=== PATIENT | male | born 1965 | race Caucasian/White ===

== ENCOUNTER 2022-10-13 09:52 | Outpatient (CLI) | payer OTHER, SELFPAY ==
[2022-10-13 10:13] LABS: Hematocrit 39.5 % (42.0-52.0); Hemoglobin 12.5 g/dL (14.0-18.0); Mean Corpuscular HGB Conc 31.6 g/dl (32-36); Mean Corpuscular Hemoglobin 27.5 pg (26-34); Mean Platelet Volume 9.2 fl (7.4-10.4); Platelet Count Result 308 k/mm3 (150-375); Red Blood Count 4.54 M/mm3 (4.6-6.20); Red Cell Distribution Width 15.8 % (11.5-14.5); White Blood Count 9.1 K/mm3 (4.5-10.0)
[2022-10-13 10:23] LABS: Appearance Urine Clear (Clear); Bacteria Urine None Seen /hpf; Bilirubin Urine Negative (Negative); Blood Urine 1+ (Negative); Color Urine Dark Yellow (Yellow); Glucose Urine UA Negative (Negative); Ketones Urine Trace mg/dL (Negative); Leukocyte Esterase Ur Trace LEU/UL (Negative); Nitrate Urine Negative (Negative); Non Pathogenic Casts 0-2; Protein Urine 1+ mg/dL (Negative); Specific Grav Ur 1.021 (1.001-1.035); Squamous Epithelial Cell Urine None seen /hpf (Few); WBC Urine 0-5 /hpf; pH Urine 7.5 (5.0-9.0)
[2022-10-13 10:27] LABS: Add Urine Microscopic? YES
[2022-10-13 10:28] LABS: INR 0.9; Prothrombin Time 12.8 Seconds (11.1-14.7)
[2022-10-13 10:29] LABS: Partial Thromboplastin Time 30.9 SECONDS (22.3-36.8)
[2022-10-13 10:40] LABS: Anion Gap 5 mmol/L (8-16); Blood Urea Nitrogen 14 mg/dL (9-20); Calcium 9.3 mg/dL (8.4-10.2); Carbon Dioxide 28 mmol/L (22-30); Chloride 102 mmol/L (98-107); Estimated Glomerular Filt Rate > 60; Glucose 92 mg/dL (65-110); Potassium 4.3 mmol/L (3.4-5.0); Sodium 135 mmol/L (137-145)
== END 2022-10-13 09:53 | disposition home or self-care (01) ==
LOC: ANHLAB 09:54
PROVIDERS: Visit Provider Neurological Surgery
DX: Z01.818 Encounter for other preprocedural examination (principal); M48.02 Spinal stenosis, cervical region
CPT/HCPCS: 36415; 80048; 81001; 85027; 85610; 85730; 86850; 86900; 86901

== ENCOUNTER 2022-10-16 00:46 | Day surgery (SDC) | payer OTHER, SELFPAY ==
--- NOTE | 2022-10-10 13:45 | PC.NURSE ---
Report to the Outpatient Waiting Room, entrance under the green pavilion located off [facility], at time 6:00 on date 10/16/22. Planned Procedure Time: 8:00. Time changes happen often and if your time is changed the preop area will call you the afternoon before. - You and your visitor will be asked to self-screen and do not enter if you have any COVID symptoms. - A mask is optional within the hospital at this time. Patients may have clear liquids (water, carbonated beverages, clear teas, apple juice) until 3 hours prior to surgery (5:00) with a maximum of 20 ounces. - No food from midnight until time of surgery Take the following medications with a SIP of water the morning of surgery: AMLODIPINE DO NOT STOP ANY OF YOUR OTHER PRESCRIPTION MEDICATIONS PRIOR TO SURGERY ?EXCEPT THE FOLLOWING Medications to discontinue per physician: DICLOFENAC Date to take last dose: CHECK WITH DR. BONNER PER SUPERVISOR MOLD YARD, LAST DOSE OF BRILINTA 10/10/22. PER SUPERVISOR MOLD YARD, CONTINUE ASPIRIN (JUST SKIP DOSE Saturday) Please no make-up, nail samoan, hairspray, perfume, deodorant, or body powder the day of surgery. No jewelry (including any body piercings) or valuables the day of surgery, leave them at home. Please take a shower or bath the night before, or the morning of, surgery with an antibacterial soap. Wear comfortable, loose fitting clothing. - Jewelry must be removed prior to entering the operating room. Rings and piercings that are not removed may be cut off. - The hospital will not accept responsibility for valuables. - Please leave all valuables, including medications, at home the day of surgery. If you are going home after surgery, a licensed truck driver instructor must drive you home. - NO public transportation without another adult if you receive anesthesia. - We recommend that an adult stay with you for 24 hours following discharge. - We also recommend that you do not drive, make important decision, drink alcoholic beverages, or take any drugs that were not prescribed by your health care provider for at least 24 hours after your discharge time. Follow any additional instructions given to you from your surgeon. If you or anyone in your household have experienced Covid symptoms in the past week, please notify your surgeon or the nurse liaison at the phone number below for possible testing. Telephone instructions given to PT - JOSH BLACKWELL and asked if any additional questions and then verbalized understanding. Patient advised to call surgeon office or pre surgery nurse liaison [phone] if any additional questions.
[2022-10-10 13:55] VITALS: BMI 22.9
--- NOTE | 2022-10-15 14:45 | WPDANESEPPF ---
Anes - Initial Pre Proc Eval Procedure: Operation Date: 10/16/22 10:00 Proposed Procedures p C4-5, C6-C7 Anterior Cervical Discectomy and Fusion - Diaz Adrian MD Date/Time: 10/15/22 14:45 Surgeon: Diaz Adrian MD Pre Op Diagnosis: cervical stenosis, spondylosis,myelopathy Patient Data Age: 57 Gender: M Height: 1.78 m Weight: 72.6 kg Allergies Allergy/AdvReac Type Severity Reaction Status Date / Time No Known Allergies Allergy Unknown Verified 10/16/22 09:23 Home Medications Medication Instructions Recorded Confirmed Type allopurinol 100 mg tablet 100 mg PO DAILY 04/20/22 10/10/22 History cyclobenzaprine 5 mg tablet 5 mg PO TID PRN Muscle Spasm 04/20/22 10/10/22 History diclofenac sodium 75 mg 75 mg PO BID 04/20/22 10/16/22 History tablet,delayed release aspirin 81 mg tablet,delayed 81 mg PO DAILY 06/18/22 10/10/22 History release atorvastatin 40 mg tablet 40 mg PO DAILY 06/18/22 10/10/22 History ticagrelor 90 mg tablet (Brilinta) 90 mg PO BID 06/18/22 10/16/22 History amlodipine 10 mg tablet 10 mg PO DAILY 10/10/22 10/16/22 History hydrocodone 5 mg-acetaminophen 325 1 - 2 tablet PO Q4H PRN pain #30 10/16/22 Rx mg tablet tabs Patient hx anesthesia problems: none Family hx anesthesia problems: none Results Review: All pre-operative results and documents have been reviewed as part of the pre-operative evaluation. [facility] Past Medical History Medical History (Updated 10/15/22 @ 14:46 by Philip Caputo DO) Anxiety Bilateral inguinal hernia, without obstruction or gangrene, not specified as recurrent Gout, unspecified Heart attack 12/2021 Hepatitis C Hypertension Low back pain, unspecified Myalgia, other site Radiculopathy, cervical region Radiculopathy, lumbar region Spinal stenosis, cervical region Spinal stenosis, lumbar region without neurogenic claudication Umbilical hernia without obstruction or gangrene Surgical History Surgical History (Updated 10/15/22 @ 14:46 by Philip Caputo DO) History of coronary artery stent placement Family History Family History (Updated 04/20/22 @ 08:23 by Luisana Fry MA) Father Family history of chronic obstructive pulmonary disease Other Heart disease Social History Social History (Updated 04/20/22 @ 08:23 by Luisana Fry MA) Smoking status: Never smoker Second hand tobacco smoke exposure: No Alcohol intake: current Substance use: never Substance use type: does not use Lack of Transportation: No Lack of Food: Never True Current Housing: I Have Housing Concerned About Future Housing: No Difficulty Paying Gas/Electric Bills: No Difficulty Paying for Meds: No Currently Unemployed: No Education: Decline to Answer Difficulty w/ Childcare or Family Care: No Living arrangements: alone Occupation/Education: occupation Spiritual care concerns: No Anes - Eval Final PreProcedure Day of Procedure 10/15/22 14:45 Patient weight: normal Heart: regular rate and rhythm Lungs: clear to auscultation Airway: Mallampati scale class II Neurological: alert and oriented Last oral intake: >/= 8 hours ASA classification: III Emergent: no Anesthetic plan: proceed Anesthesia type and monitoring: general ETT and standard monitoring Results Review: All pre-operative results and documents have been reviewed as part of the pre-operative evaluation. Informed Consent: The patient's anesthetic plan and its attendant risks and benefits were discussed with the patient/family/POA. Questions were solicited and answers provided to the satisfaction of the patient/family/POA.
[2022-10-16] VITALS (12 sets, daily range): BP systolic 120–148; BP diastolic 72–89; PULSE 52–62; RESP 11–16; TEMP 36.4–36.7; O2SAT 92–100
--- NOTE | ~2022-10-16 | XR_ITS ---
EXAMINATION: XR fluoroscopy no charge DATE: 10/16/2022 10:00 CDT INDICATION: CERVICAL DISCECTOMY . TECHNIQUE: 2 fluoroscopic images of the cervical spine were obtained during cervical discectomy perfo rmed by the surgeon. I was not present in the operating room. Fluoroscopy exposure time was 3.8 secon ds. Air Kerma 0.2112 mGy. DAP 0.0042 mGym2. COMPARISON: None FINDINGS: Partially visualized endotracheal tube. A probe identifies the C4-5 disc space. ACDF hardware placed spanning C4-C6. Interbody devices in good position. IMPRESSION: Fluoroscopic documentation of cervical discectomy. Please refer to the operative note for complete pr ocedural details . Reviewed, dictated and finalized at location K. IMPRESSION: Fluoroscopic documentation of cervical discectomy. Please refer to the operativ e note for complete procedural details .
[2022-10-16] MEDS: LACTATED RINGERS 1,000 ML 30 ML IV CONT ×2 (09:00→12:15)
--- NOTE | 2022-10-16 09:59 | PM.IMHP ---
H&P: HPI History of Present Illness Date/Time: 10/16/22 09:59 Chief Complaint: Neck and arm pain, myelopathy, dysfunction in his hands Narrative: Angelito is a 57-year-old gentleman with a cervical spondylotic myelopathy who presents for decompression and fusion from an anterior approach at C4-5 and C5-6. He has not changed appreciably since we last saw him. He has weakness and loss of dexterity in his hands right greater than left. He has loss of sensation to some degree in his hands. He does has mild gait disturbance and is not having any bowel or bladder difficulty. Review of Systems Review of Systems: Patient denies shortness of breath, cough, fever, chills, nausea, vomiting, weight loss, weight gain, chest pain, dysuria. He has imbalance and difficulty using his hands as above as well as neck pain. His review of systems otherwise negative on 12 systems except as noted elsewhere. [facility] Past Medical History Medical History (Updated 10/15/22 @ 14:46 by Philip Caputo DO) Anxiety Bilateral inguinal hernia, without obstruction or gangrene, not specified as recurrent Gout, unspecified Heart attack 12/2021 Hepatitis C Hypertension Low back pain, unspecified Myalgia, other site Radiculopathy, cervical region Radiculopathy, lumbar region Spinal stenosis, cervical region Spinal stenosis, lumbar region without neurogenic claudication Umbilical hernia without obstruction or gangrene Surgical History Surgical History (Updated 10/15/22 @ 14:46 by Philip Caputo DO) History of coronary artery stent placement Family History Family History (Updated 04/20/22 @ 08:23 by Luisana Fry MA) Father Family history of chronic obstructive pulmonary disease Other Heart disease Social History Social History (Updated 04/20/22 @ 08:23 by Luisana Fry MA) Smoking status: Never smoker Second hand tobacco smoke exposure: No Alcohol intake: current Substance use: never Substance use type: does not use Lack of Transportation: No Lack of Food: Never True Current Housing: I Have Housing Concerned About Future Housing: No Difficulty Paying Gas/Electric Bills: No Difficulty Paying for Meds: No Currently Unemployed: No Education: Decline to Answer Difficulty w/ Childcare or Family Care: No Living arrangements: alone Occupation/Education: occupation Spiritual care concerns: No Meds Home Medications and Allergies Home Medications Medication Instructions Recorded Confirmed Type allopurinol 100 mg tablet 100 mg PO DAILY 04/20/22 10/10/22 History cyclobenzaprine 5 mg tablet 5 mg PO TID PRN Muscle Spasm 04/20/22 10/10/22 History diclofenac sodium 75 mg 75 mg PO BID 04/20/22 10/16/22 History tablet,delayed release aspirin 81 mg tablet,delayed 81 mg PO DAILY 06/18/22 10/10/22 History release atorvastatin 40 mg tablet 40 mg PO DAILY 06/18/22 10/10/22 History ticagrelor 90 mg tablet (Brilinta) 90 mg PO BID 06/18/22 10/16/22 History amlodipine 10 mg tablet 10 mg PO DAILY 10/10/22 10/16/22 History Allergies Allergy/AdvReac Type Severity Reaction Status Date / Time No Known Allergies Allergy Unknown Verified 10/16/22 09:23 Vital Signs Vital Signs - 24 hr 10/16/22 09:15 Temperature 97.5 F L Pulse Rate 62 Respiratory Rate 14 Blood Pressure 134/77 Pulse Oximetry 100 Oxygen Delivery Room Air Exam Narrative: 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 It is otherwise normal and symmetric in the bilateral upper extremities. Sensation is slightly decreased distally in the upper extremities. Regular rate and rhythm Breathing is nonlabored Assessment and Plan Assessment and plan (1) Myelopathy: Code(s): G95.9 - Disease of spinal cord, unspecified Status: Acute (2) Cervical stenosis of spine: Code(s): M48.02 - Spinal stenosis, cervical region Status: Ac
--- NOTE | 2022-10-16 10:02 | WPDHPUPDATE1 ---
History and Physical Update Update Date/Time: 10/16/22 10:02 History and Physical has been reviewed, including an updated exam of the patient. There are NO changes in the patient's condition. Risks, benefits, and alternatives have been discussed and questions answered. Patient agrees to proceed with procedure.
--- NOTE | 2022-10-16 10:08 | WPDANESEPPF ---
Anes - Initial Pre Proc Eval Procedure: Operation Date: 10/16/22 10:00 Proposed Procedures p C4-5, C6-C7 Anterior Cervical Discectomy and Fusion - Diaz Adrian MD Date/Time: 10/16/22 10:08 Surgeon: Diaz Adrian MD Pre Op Diagnosis: cervical stenosis, spondylosis,myelopathy Patient Data Age: 57 Gender: M Height: 1.78 m Weight: 71.2 kg Last Vital Signs Temp 97.5 F L 10/16/22 09:15 Pulse 62 10/16/22 09:15 Resp 14 10/16/22 09:15 BP 134/77 10/16/22 09:15 Pulse Ox 100 10/16/22 09:15 O2 Del Method Room Air 10/16/22 09:15 Allergies Allergy/AdvReac Type Severity Reaction Status Date / Time No Known Allergies Allergy Unknown Verified 10/16/22 09:23 Home Medications Medication Instructions Recorded Confirmed Type allopurinol 100 mg tablet 100 mg PO DAILY 04/20/22 10/10/22 History cyclobenzaprine 5 mg tablet 5 mg PO TID PRN Muscle Spasm 04/20/22 10/10/22 History diclofenac sodium 75 mg 75 mg PO BID 04/20/22 10/16/22 History tablet,delayed release aspirin 81 mg tablet,delayed 81 mg PO DAILY 06/18/22 10/10/22 History release atorvastatin 40 mg tablet 40 mg PO DAILY 06/18/22 10/10/22 History ticagrelor 90 mg tablet (Brilinta) 90 mg PO BID 06/18/22 10/16/22 History amlodipine 10 mg tablet 10 mg PO DAILY 10/10/22 10/16/22 History Patient hx anesthesia problems: none Family hx anesthesia problems: none Results Review: All pre-operative results and documents have been reviewed as part of the pre-operative evaluation. [facility] Past Medical History Medical History (Updated 10/15/22 @ 14:46 by Philip Caputo DO) Anxiety Bilateral inguinal hernia, without obstruction or gangrene, not specified as recurrent Gout, unspecified Heart attack 12/2021 Hepatitis C Hypertension Low back pain, unspecified Myalgia, other site Radiculopathy, cervical region Radiculopathy, lumbar region Spinal stenosis, cervical region Spinal stenosis, lumbar region without neurogenic claudication Umbilical hernia without obstruction or gangrene Surgical History Surgical History (Updated 10/15/22 @ 14:46 by Philip Caputo DO) History of coronary artery stent placement Family History Family History (Updated 04/20/22 @ 08:23 by Luisana Fry MA) Father Family history of chronic obstructive pulmonary disease Other Heart disease Social History Social History (Updated 04/20/22 @ 08:23 by Luisana Fry MA) Smoking status: Never smoker Second hand tobacco smoke exposure: No Alcohol intake: current Substance use: never Substance use type: does not use Lack of Transportation: No Lack of Food: Never True Current Housing: I Have Housing Concerned About Future Housing: No Difficulty Paying Gas/Electric Bills: No Difficulty Paying for Meds: No Currently Unemployed: No Education: Decline to Answer Difficulty w/ Childcare or Family Care: No Living arrangements: alone Occupation/Education: occupation Spiritual care concerns: No Anes - Eval Final PreProcedure Day of Procedure 10/16/22 10:08 Patient weight: normal Heart: regular rate and rhythm Lungs: clear to auscultation Airway: Mallampati scale class II Neurological: alert and oriented Last oral intake: >/= 8 hours ASA classification: III Emergent: no Anesthetic plan: proceed Anesthesia type and monitoring: general ETT and standard monitoring Results Review: All pre-operative results and documents have been reviewed as part of the pre-operative evaluation. Informed Consent: The patient's anesthetic plan and its attendant risks and benefits were discussed with the patient/family/POA. Questions were solicited and answers provided to the satisfaction of the patient/family/POA.
[2022-10-16] MEDS: ceFAZolin 2 GM/D5W 50 ML 2 GM/50 ML BAG IVPB (10:12)
[2022-10-16] MEDS: LIDO 1%/EPINEPHRINE 1:100,000 50 ML VIAL 30 ML INFILTRATE (10:49)
--- NOTE | 2022-10-16 12:44 | W.PM.PROC2 ---
Procedure Note - Detailed Date of Procedure 10/16/22 Pre-op Diagnosis cervical stenosis, spondylosis,myelopathy Post-op Diagnosis Same Procedure Performed C4-5 and C5-6 anterior cervical diskectomy and fusion Surgeon Diaz Adrian MD Anesthesia General Description of Procedure Patient was brought to the operating room in the supine position, was sedated, intubated placed under general anesthesia in routine fashion. The area of operation on the right side of the neck was examined, marked for incision, prepped and draped in routine sterile fashion. Incision was marked from the midline over the medial aspect of the sternocleidomastoid muscle and curvilinear transverse fashion 3 fingerbreadths above the sternal notch. This area was injected with 0.5% lidocaine with [id number] epinephrine. Intravenous antibiotics given prior to incision. Incision was made with a 10 blade scalpel down to the platysma muscle. Skin was undermined and the platysma muscle was divided longitudinally with its fibers using Metzenbaum scissors. Plane was then dissected medial to the sternocleidomastoid muscle down to the anterior aspect of spine using the finger and Metzenbaum scissors. A verifying x-rays obtained to verify the level of operation. At the C4-5 and C5-6 levels longus colli muscle was dissected free of the anterior aspect of the spine in a subperiosteal plane using Bovie cautery. Shadow Line retractor system was placed. [place] pins were placed in the C4 and C6 and distraction placed over both disc spaces simultaneously. Diskectomy and arthrodesis procedures were performed identically at each level. This was done by entering the disc space by cutting along the margin of the bone above and below using a 15 blade scalpel. Curved curette and pituitary rongeur were used to remove as much cartilaginous endplate and disc material as possible down to the annulus and ligament posteriorly. A Midas Boogie drill was used to bur down the endplates to bleeding cortical flat surfaces as well as to begin a bony foraminotomy bilaterally. Under microscopy the annulus and ligament where interrupted using a 4-0 curved curette. 2. Kerrison punch was used to remove annulus, ligament, posterior osteophytes and to complete a bony foraminotomy bilaterally. This was done until a nerve hook could be placed out each foramen to confirm lack of compression. The disc space was then sized appropriately sized interbody devices were chosen and filled with local autograft bone and I factor. These were then tamped into the interspaces to a 2-3 mm countersink. A 6 mm device was placed at C5-6 and an 8 mm device was placed at C4-5. An anterior cervical plate was chosen, placed in position and secured using 614 x 4 mm anterior screws advancing the locking mechanism plate to hand tightness after the cortex was pierced with a hand drill. The locking mechanism was engaged at each of these screws. A verifying x-rays obtained to verify good position of the instrumentation which was confirmed. The wound was then copiously irrigated with bacitracin irrigation all bleeding stopped with bipolar and Bovie cautery and Gelfoam thrombin powder. The wound was then closed in layered fashion with 3-0 Vicryl interrupted sutures in the platysma muscle and in the dermis. The skin was closed with a running 4-0 Monocryl subcuticular stitch and dressed with Dermabond. Patient was then allowed to wake up in the operating room was taken to the recovery room in stable condition. There were no immediate complications of this operation. All counts were reported correct in the case. Blood loss was 25 cc. Estimated Blood Loss -25.0 IV Fluids 1,000 Complications None Condition Stable Disposition PACU [facility] Billing Surgery - Charge Forward: Surgery Billing
[2022-10-16] MEDS: fentaNYL CITRATE INJ (*CRX) 100 MCG/2 ML VIAL 25 MCG IV PUSH (13:00)
[2022-10-16] MEDS: oxyCODONE HCL (*CRX) 5 MG TAB IR PO (14:09)
== END 2022-10-16 15:15 | disposition home or self-care (01) ==
PROVIDERS: PCP Internal Medicine; Visit Provider Neurological Surgery
PROC: (CPT 63030; principal; 2022-10-16 10:00)
DX: M48.02 Spinal stenosis, cervical region (principal); G99.2 Myelopathy in diseases classified elsewhere; I10 Essential (primary) hypertension; I25.2 Old myocardial infarction; M10.9 Gout, unspecified; Z95.5 Presence of coronary angioplasty implant and graft; Z79.01 Long term (current) use of anticoagulants; Z79.82 Long term (current) use of aspirin; Z86.19 Personal history of other infectious and parasitic diseases
CPT/HCPCS: 22551; 22552; 22853 ×2; 20936; 36415; 80048; 81001; 85027; 85610; 85730; 86850; 86900; 86901; 99199; A9270; C1713; J0330; J0690; J1100; J1170; J2250; J2371; J2405; J2704; J2710; J3010; J7120

== ENCOUNTER 2022-10-19 10:52 | Emergency (ER) | payer OTHER, SELFPAY ==
[2022-10-19] VITALS (22 sets, daily range): BP systolic 131–163; BP diastolic 91–102; PULSE 63–92; RESP 10–23; TEMP 36.8; O2SAT 93–100
--- NOTE | ~2022-10-19 | XR_ITS ---
Clinical Indication: Paresthesias AP and lateral views of the chest: Comparison: None Findings: The lungs are clear, without evidence of focal consolidation or pleural effusion. Cardiome diastinal silhouette is within normal limits. Bones and soft tissues are unremarkable. Impression: Normal chest. Reviewed, dictated and finalized at location . Impression: Normal chest.
--- NOTE | ~2022-10-19 | XR_ITS ---
Cervical Spine: AP, lateral, open-mouth views Clinical History: Pain, status post fusion 3 days ago Findings: The normal lordotic curve is maintained. There is anterior fusion hardware extending from C 4 through C6, with anterior plate and screws and probable interbody fusion devices. There is advanced degenerative disc narrowing at C6-C7. There is extensive, prominent prevertebral soft tissue swellin g. There is also probable thickening of the aryepiglottic folds. Impression: Status post anterior fusion from C4 to C6. Extensive prevertebral soft tissue thickening and thickening of the aryepiglottic folds. These findin gs are presumably related to recent surgery. Correlate clinically for any possibility of postoperativ e infection. Reviewed, dictated and finalized at [facility]. Impression: Status post anterior fusion from C4 to C6. Extensive prevertebral soft tissue thickening and thickening of the aryepiglott ic folds. These findings are presumably related to recent surgery. Correlate cl inically for any possibility of postoperative infection.
--- NOTE | ~2022-10-19 | CT_ITS ---
EXAMINATION: CTA chest PE protocol DATE: 10/19/2022 12:58 INDICATION: Chest pain. Shortness of breath. TECHNIQUE: Computed tomography angiography (CTA) of the chest was performed with 100 mL Omnipaque-350 intravenous contrast timed to evaluate the pulmonary arteries. Coronal maximum intensity projection 3D-reconstructions were created by the technologist. Automated exposure control and iterative reconst ruction technique were employed. The dose-length product was 334.48 mGy-cm. COMPARISON: None. FINDINGS: There is mild emphysema. There is mild atelectasis bilaterally. No pleural effusion. There is soft tissue gas and edema in the neck, consistent with recent surgery. The heart size is normal. T here are coronary artery calcifications. No pericardial effusion. There is no pulmonary embolus. Ther e is mild thoracic spondylosis. There are changes of anterior fusion procedure in cervical spine. IMPRESSION: 1. No pulmonary embolus. 2. Mild emphysema. Reviewed, dictated and finalized at location B.
--- NOTE | 2022-10-19 11:21 | ECG_ITS ---
Measurements Intervals [place] Rate: 84 P: 73 PA: 137 QRS: 50 QRSD: 105 T: 44 QT: 378 QTc: 447 Interpretive Statements SINUS RHYTHM WITH SINUS ARRHYTHMIA MODERATE VOLTAGE CRITERIA FOR LVH, CONSIDER NORMAL VARIANT [MEETS CRITERIA IN ONE OF: R(aVL), S(V1), R(V5), R(V5/V6)+S(V1)] ABNORMAL ECG NO PREVIOUS ECG AVAILABLE FOR COMPARISON Electronically Signed On 10-19-2022 13:10:13 CDT by Grey Boswell M.D.
--- NOTE | 2022-10-19 11:29 | ED.GENADULT ---
HPI - General Adult General Chief complaint: Unspecified Stated complaint: Cant feel hands, recent neck surgury Time Seen by Provider: 10/19/22 11:08 Source: patient Mode of arrival: ambulatory Limitations: no limitations History of Present Illness HPI narrative: This is a 57-year-old male that presents to the emergency department for neck pain. Reports he had cervical spine surgery 3 days ago. He has been taking hydrocodone with little relief. Reports paresthesias in his arms, these were present prior to surgery, but have worsened since surgery. Also reports weakness in his hands. Reports some discomfort with swallowing. Reports he has had tightness in his epigastric region, this has been going on for some time. He was evaluated at another facility for this recently and discharged. Also reports shortness of breath. Denies fever, visual changes, vomiting, or other focal numbness or weakness. Related Data Home Medications Medication Instructions Recorded Confirmed allopurinol 100 mg tablet 100 mg PO DAILY 04/20/22 10/10/22 cyclobenzaprine 5 mg tablet 5 mg PO TID PRN Muscle Spasm 04/20/22 10/10/22 diclofenac sodium 75 mg 75 mg PO BID 04/20/22 10/16/22 tablet,delayed release aspirin 81 mg tablet,delayed 81 mg PO DAILY 06/18/22 10/10/22 release atorvastatin 40 mg tablet 40 mg PO DAILY 06/18/22 10/10/22 ticagrelor 90 mg tablet (Brilinta) 90 mg PO BID 06/18/22 10/16/22 amlodipine 10 mg tablet 10 mg PO DAILY 10/10/22 10/16/22 Allergies Allergy/AdvReac Type Severity Reaction Status Date / Time No Known Allergies Allergy Unknown Verified 10/16/22 09:23 Review of Systems Review of Systems: CONSTITUTIONAL: Denies fever EYES: Denies visual changes CARDIOVASCULAR: Reports chest pain. Denies edema. RESPIRATORY: Reports dyspnea. GASTROINTESTINAL: Denies vomiting MUSCULOSKELETAL: Reports joint pain, and myalgia. NEUROLOGIC: Reports weakness. Denies numbness All systems reviewed & are unremarkable except as noted in HPI and below PMFSH Past Medical History Medical History (Updated 10/19/22 @ 16:04 by Khadijah Haynes PA-C) Anxiety Bilateral inguinal hernia, without obstruction or gangrene, not specified as recurrent Gout, unspecified Heart attack 12/2021 Hepatitis C Hypertension Low back pain, unspecified Myalgia, other site Radiculopathy, cervical region Radiculopathy, lumbar region Spinal stenosis, cervical region Spinal stenosis, lumbar region without neurogenic claudication Umbilical hernia without obstruction or gangrene Surgical History Surgical History (Updated 10/19/22 @ 15:29 by Khadijah Haynes PA-C) History of coronary artery stent placement Family History Family History (Updated 04/20/22 @ 08:23 by Luisana Fry MA) Father Family history of chronic obstructive pulmonary disease Other Heart disease Social History Social History (Updated 04/20/22 @ 08:23 by Luisana Fry MA) Smoking status: Never smoker Second hand tobacco smoke exposure: No Alcohol intake: current Substance use: never Substance use type: does not use Lack of Transportation: No Lack of Food: Never True Current Housing: I Have Housing Concerned About Future Housing: No Difficulty Paying Gas/Electric Bills: No Difficulty Paying for Meds: No Currently Unemployed: No Education: Decline to Answer Difficulty w/ Childcare or Family Care: No Living arrangements: alone Occupation/Education: occupation Spiritual care concerns: No Exam Narrative: GENERAL: Well-appearing, well-nourished, and in no acute distress. HEAD: Normocephalic, atraumatic. EYES: PERRLA and EOMI. ENT: Nares clear, no rhinorrhea or epistaxis. Mucous membranes moist. Oropharynx without tonsillar hypertrophy exudate or other lesions. Bilateral TMs pearly chacon non-bulging NECK: Supple. Incision present to the right anterior neck that is intact without surrounding erythema, fluctuance or abnormal discharge
[2022-10-19] MEDS: ASPIRIN 81 MG CHEWABLE TABLET 324 MG PO (11:44)
[2022-10-19] MEDS: ONDANSETRON INJ 4 MG/2 ML VIAL IV PUSH (11:44)
[2022-10-19] MEDS: MORPHINE SULFATE (*CRX) 4 MG/ML INJ IV PUSH (11:46)
[2022-10-19 11:48] LABS: Basophils Absolute Auto 0.1 K/mm3 (0.0-0.1); Basophils Percent Auto 0.4 % (0.2-1.2); Eosinophils Percent Auto 0.2 % (0-4.4); Hematocrit 38.7 % (42.0-52.0); Hemoglobin 12.7 g/dL (14.0-18.0); Immature Granulocyte Absolute 0.11 K/mm3 (0.00-0.031); Immature Granulocyte Percent A 0.8 % (0-0.5); Lymphocytes Absolute Auto 0.96 K/mm3 (0.9-3.2); Lymphocytes Percent Auto 6.8 % (18.3-44.2); Mean Corpuscular HGB Conc 32.8 g/dl (32-36); Mean Corpuscular Hemoglobin 27.9 pg (26-34); Mean Corpuscular Volume 85.1 fl (80-100); Monocytes Absolute Auto 1.3 K/mm3 (0.1-0.6); Neutrophils Absolute Auto 11.7 K/mm3 (1.3-6.7); Neutrophils Percent Auto 82.8 % (45.5-73.1); Platelet Count Result 298 k/mm3 (150-375); Red Blood Count 4.55 M/mm3 (4.6-6.20); Red Cell Distribution Width 15.4 % (11.5-14.5); White Blood Count 14.2 K/mm3 (4.5-10.0)
[2022-10-19 12:00] LABS: Alanine Aminotransferase 25 U/L (6-50); Albumin Level 4.8 g/dL (3.5-5.1); Alkaline Phosphatase 124 U/L (38-126); Anion Gap 12 mmol/L (8-16); Aspartate Amino Transferase 27 U/L (17-59); Bilirubin,Total 0.8 mg/dL (0.2-1.3); Blood Urea Nitrogen 13 mg/dL (9-20); Calcium 9.9 mg/dL (8.4-10.2); Carbon Dioxide 27 mmol/L (22-30); Chloride 97 mmol/L (98-107); Estimated CRCL calculation 121 ml/min; Estimated Glomerular Filt Rate > 60; Glucose 104 mg/dL (65-110); Lipase 27 U/L (23-300); Potassium 3.1 mmol/L (3.4-5.0); Prothrombin Time 13.6 Seconds (11.1-14.7); Sodium 136 mmol/L (137-145)
[2022-10-19 12:11] LABS: Troponin I < 0.012 ng/mL (0.000-0.034)
[2022-10-19 12:12] LABS: D Dimer 0.71 ug/mL (<0.48)
[2022-10-19 14:45] LABS: Troponin I < 0.012 ng/mL (0.000-0.034)
[2022-10-19 15:07] LABS: CRP 7.3 mg/dL (<1.0)
[2022-10-19] MEDS: POTASSIUM CHLORIDE 20 MEQ ER TABLET 40 MEQ PO (15:46)
[2022-10-19] MEDS: methylPREDNISolone SOD SUCC 40 MG VIAL IV PUSH (15:51)
== END 2022-10-19 16:39 | disposition home or self-care (01) ==
PROVIDERS: Emergency Provider Physician Assistant; PCP Internal Medicine
DX: R10.13 Epigastric pain (principal); E87.6 Hypokalemia; Z98.1 Arthrodesis status; I25.2 Old myocardial infarction; I10 Essential (primary) hypertension; M10.9 Gout, unspecified; Z95.5 Presence of coronary angioplasty implant and graft; Z79.82 Long term (current) use of aspirin; J43.9 Emphysema, unspecified
CPT/HCPCS: 36415; 71046; 71275; 72040; 80053; 83690; 84484; 85025; 85380; 85610; 85730; 86140; 93005; 96374; 96375; 99284; A9270; J2270; J2405; J2920; Q9967

== ENCOUNTER 2023-01-05 09:57 | Outpatient (CLI) | payer OTHER, SELFPAY ==
[2023-01-05 10:18] LABS: Hematocrit 39.3 % (42.0-52.0); Mean Corpuscular HGB Conc 30.5 g/dl (32-36); Mean Corpuscular Hemoglobin 26.2 pg (26-34); Mean Corpuscular Volume 85.8 fl (80-100); Platelet Count Result 263 k/mm3 (150-375); Red Blood Count 4.58 M/mm3 (4.6-6.20); Red Cell Distribution Width 14.7 % (11.5-14.5)
[2023-01-05 10:27] LABS: Anion Gap 7 mmol/L (8-16); Blood Urea Nitrogen 15 mg/dL (9-20); Calcium 9.4 mg/dL (8.4-10.2); Carbon Dioxide 29 mmol/L (22-30); Chloride 102 mmol/L (98-107); Estimated Glomerular Filt Rate > 60; Glucose 103 mg/dL (65-110); Potassium 4.3 mmol/L (3.4-5.0); Sodium 138 mmol/L (137-145)
[2023-01-05 10:29] LABS: Appearance Urine Clear (Clear); Bacteria Urine None Seen /hpf; Bilirubin Urine Negative (Negative); Blood Urine 2+ (Negative); Color Urine Yellow (Yellow); Glucose Urine UA Negative (Negative); INR 0.9; Ketones Urine Negative (Negative); Leukocyte Esterase Ur Trace LEU/UL (Negative); Nitrate Urine Negative (Negative); Non Pathogenic Casts 0-2; Partial Thromboplastin Time 28.8 SECONDS (22.3-36.8); Protein Urine Trace mg/dL (Negative); Prothrombin Time 12.4 Seconds (11.1-14.7); RBC Urine 0-2 /hpf (0-2); Specific Grav Ur 1.024 (1.001-1.035); Squamous Epithelial Cell Urine None seen /hpf (Few); WBC Urine 0-5 /hpf; pH Urine 5.5 (5.0-9.0)
[2023-01-07 07:22] LABS: Add Urine Microscopic? YES
== END 2023-01-05 09:58 | disposition home or self-care (01) ==
LOC: ANHLAB 09:58
PROVIDERS: PCP Internal Medicine; Visit Provider Neurological Surgery
DX: Z01.818 Encounter for other preprocedural examination (principal); M48.02 Spinal stenosis, cervical region; G95.9 Disease of spinal cord, unspecified
CPT/HCPCS: 36415; 80048; 81001; 81003; 85027; 85610; 85730; 86850; 86900; 86901

== ENCOUNTER 2023-01-08 00:35 | Day surgery (SDC) | payer OTHER, SELFPAY ==
[2023-01-04 14:12] VITALS: BMI 22.7
--- NOTE | 2023-01-04 15:02 | PC.NURSE ---
Report to the Outpatient Waiting Room, entrance under the green pavilion located off [facility], at time _12:00_ on date _01/08/23__. Planned Procedure Time: __2:00PM . Time changes happen often and if your time is changed the preop area will call you the afternoon before. - You and your visitor will be asked to self-screen and do not enter if you have any COVID symptoms. - A mask is optional within the hospital at this time. BRING A SMALL BAG OF ESSENTIALS FOR YOUR OVERNIGHT STAY IN THE HOSPITAL Patients may have clear liquids (water, carbonated beverages, clear teas, apple juice) until 3 hours prior to surgery (11:00) with a maximum of 20 ounces. - No food from midnight until time of surgery - Take the following medications with a SIP of water the morning of surgery: __AMLODIPINE DO NOT STOP ANY OF YOUR OTHER PRESCRIPTION MEDICATIONS PRIOR TO SURGERY ?EXCEPT THE FOLLOWING Medications to discontinue per physician CONTINUE TO HOLD ASA; BRILLINTA; AND DICLOFENAC DIRECTED BY DR. BARAJAS__ Date to take last dose____01/03/23 Please no make-up, nail pashto, hairspray, perfume, deodorant, or body powder the day of surgery. No jewelry (including any body piercings) or valuables the day of surgery, leave them at home. Please take a shower or bath the night before, or the morning of, surgery with an antibacterial soap. Wear comfortable, loose fitting clothing. - Jewelry must be removed prior to entering the operating room. Rings and piercings that are not removed may be cut off. - The hospital will not accept responsibility for valuables. - Please leave all valuables, including medications, at home the day of surgery. If you are going home after surgery, a licensed route delivery driver must drive you home. - NO public transportation without another adult if you receive anesthesia. - We recommend that an adult stay with you for 24 hours following discharge. - We also recommend that you do not drive, make important decision, drink alcoholic beverages, or take any drugs that were not prescribed by your health care provider for at least 24 hours after your discharge time. Follow any additional instructions given to you from your surgeon. If you or anyone in your household have experienced Covid symptoms in the past week, please notify your surgeon or the nurse liaison at the phone number below for possible testing. Telephone instructions given to _SYEDA___and asked if any additional questions and then verbalized understanding. Patient advised to call surgeon office or pre surgery nurse liaison [phone] if any additional questions.
[2023-01-08] VITALS (14 sets, daily range): BP systolic 135–186; BP diastolic 74–101; PULSE 58–79; RESP 10–20; TEMP 36.1–36.3; O2SAT 93–100
--- NOTE | ~2023-01-08 | XR_ITS ---
EXAMINATION: XR fluoroscopy no charge DATE: 01/08/2023 15:15 INDICATION: C4-5 laminectomy. TECHNIQUE: 2 intraoperative lateral fluoroscopic views of the cervical spine were obtained. I was not present. Fluoroscopy exposure time was 6 seconds. COMPARISON: Cervical spine radiographs 10/19/2022 FINDINGS: There are changes of anterior fusion procedure from C4 to C6 with interbody devices and ant erior plate and screws. There are changes of posterior fusion procedure at C4-C5 with lateral mass sc rews. IMPRESSION: 1. New posterior fusion procedure at C4-C5. 2. Anterior fusion procedure from C4 to C6. Reviewed, dictated and finalized at location E.
[2023-01-08] MEDS: LACTATED RINGERS 1,000 ML 30 ML IV CONT ×2 (10:53→15:39)
--- NOTE | 2023-01-08 12:01 | SUR.PREOP ---
1000 PT INFORMED OF SURGERY TIME DELAY.
--- NOTE | 2023-01-08 13:00 | PM.IMHP ---
H&P: HPI History of Present Illness Date/Time: 01/08/23 13:00 Chief Complaint: Progressive myelopathy Narrative: Angelito is a 57-year-old gentleman with a progressive myelopathy despite decompression who presents now for of decompression from a posterior approach. He has not changed appreciably since we last saw him. He has some diffuse weakness in his extremities and no dermatomal numbness. He is not having bowel or bladder difficulty that is new. Review of Systems Review of Systems: Patient denies shortness of breath, cough, fever, chills, nausea, vomiting, weight loss, weight gain, chest pain, dysuria. He has progressive weakness and discoordination his extremities. His review of systems otherwise negative on 12 systems except as noted elsewhere. [facility] Past Medical History Medical History Anxiety Bilateral inguinal hernia, without obstruction or gangrene, not specified as recurrent Gout, unspecified Heart attack 12/2021 Hepatitis C Hypertension Low back pain, unspecified Myalgia, other site Radiculopathy, cervical region Radiculopathy, lumbar region Spinal stenosis, cervical region Spinal stenosis, lumbar region without neurogenic claudication Umbilical hernia without obstruction or gangrene Surgical History Surgical History History of coronary artery stent placement Family History Family History Father Family history of chronic obstructive pulmonary disease Other Heart disease Social History Social History (Updated 12/31/22 @ 08:41 by PILO Angel) Social History: Resource provided for food - pt states he has had assistance regarding keeping food in the home and is worried that food may run out. Angelito is very confident in filling out medical forms. Smoking packs per day: 0.5 Smoking cigarettes per day: 10.0 Years smoked: 30 Smoking pack-years: 15.00 Smoking status: Current every day smoker Tobacco type: cigarettes Second hand tobacco smoke exposure: No Alcohol intake: current Drinks per week: 3 Substance use: current Substance use type: marijuana Other substance usage details: SMOKES MARIJUANA DAILY Last use: 01/04/23 Lack of Transportation: No Lack of Food: Sometimes True Current Housing: I Have Housing Concerned About Future Housing: No Difficulty Paying Gas/Electric Bills: No Difficulty Paying for Meds: YES Currently Unemployed: No Education: High School Diploma/GED Difficulty w/ Childcare or Family Care: No Living arrangements: alone Occupation/Education: occupation Spiritual care concerns: No Meds Home Medications and Allergies Home Medications Medication Instructions Recorded Confirmed Type allopurinol 100 mg tablet 100 mg PO DAILY 04/20/22 01/08/23 History cyclobenzaprine 5 mg tablet 5 mg PO TID PRN Muscle Spasm 04/20/22 01/08/23 History diclofenac sodium 75 mg 75 mg PO BID 04/20/22 01/08/23 History tablet,delayed release aspirin 81 mg tablet,delayed 81 mg PO DAILY 06/18/22 01/08/23 History release atorvastatin 40 mg tablet 40 mg PO DAILY 06/18/22 01/08/23 History ticagrelor 90 mg tablet (Brilinta) 90 mg PO BID 06/18/22 01/08/23 History amlodipine 10 mg tablet 10 mg PO DAILY 10/10/22 01/08/23 History Allergies Allergy/AdvReac Type Severity Reaction Status Date / Time No Known Allergies Allergy Unknown Verified 01/08/23 11:03 Vital Signs Vital Signs - 24 hr 01/08/23 09:56 Temperature 97.3 F L Pulse Rate 66 Respiratory Rate 18 Blood Pressure 155/95 H Pulse Oximetry 98 Oxygen Delivery Room Air Exam Narrative: 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 Sensation is intact to light touch throughout the upper and lower ex
--- NOTE | 2023-01-08 13:02 | WPDHPUPDATE1 ---
History and Physical Update Update Date/Time: 01/08/23 13:02 History and Physical has been reviewed, including an updated exam of the patient. There are NO changes in the patient's condition. Risks, benefits, and alternatives have been discussed and questions answered. Patient agrees to proceed with procedure.
--- NOTE | 2023-01-08 13:13 | WPDANESEPPF ---
Anes - Initial Pre Proc Eval Procedure: Operation Date: 01/08/23 12:00 Proposed Procedures p C4-5 Laminectomy with Lateral Mass Instrumented Fusion - Diaz Adrian MD Date/Time: 01/08/23 13:13 Surgeon: Diaz Adrian MD Pre Op Diagnosis: C4-5 stenosis Patient Data Age: 57 Gender: M Height: 1.78 m Weight: 70.05 kg Last Vital Signs Temp 97.3 F L 01/08/23 09:56 Pulse 66 01/08/23 09:56 Resp 18 01/08/23 09:56 BP 155/95 H 01/08/23 09:56 Pulse Ox 98 01/08/23 09:56 O2 Del Method Room Air 01/08/23 09:56 Allergies Allergy/AdvReac Type Severity Reaction Status Date / Time No Known Allergies Allergy Unknown Verified 01/08/23 11:03 Home Medications Medication Instructions Recorded Confirmed Type allopurinol 100 mg tablet 100 mg PO DAILY 04/20/22 01/08/23 History cyclobenzaprine 5 mg tablet 5 mg PO TID PRN Muscle Spasm 04/20/22 01/08/23 History diclofenac sodium 75 mg 75 mg PO BID 04/20/22 01/08/23 History tablet,delayed release aspirin 81 mg tablet,delayed 81 mg PO DAILY 06/18/22 01/08/23 History release atorvastatin 40 mg tablet 40 mg PO DAILY 06/18/22 01/08/23 History ticagrelor 90 mg tablet (Brilinta) 90 mg PO BID 06/18/22 01/08/23 History amlodipine 10 mg tablet 10 mg PO DAILY 10/10/22 01/08/23 History Patient hx anesthesia problems: none Family hx anesthesia problems: none Results Review: All pre-operative results and documents have been reviewed as part of the pre-operative evaluation. [facility] Past Medical History Medical History Anxiety Bilateral inguinal hernia, without obstruction or gangrene, not specified as recurrent Gout, unspecified Heart attack 12/2021 Hepatitis C Hypertension Low back pain, unspecified Myalgia, other site Radiculopathy, cervical region Radiculopathy, lumbar region Spinal stenosis, cervical region Spinal stenosis, lumbar region without neurogenic claudication Umbilical hernia without obstruction or gangrene Surgical History Surgical History History of coronary artery stent placement Family History Family History Father Family history of chronic obstructive pulmonary disease Other Heart disease Social History Social History (Updated 12/31/22 @ 08:41 by PILO Angel) Social History: Resource provided for food - pt states he has had assistance regarding keeping food in the home and is worried that food may run out. Angelito is very confident in filling out medical forms. Smoking packs per day: 0.5 Smoking cigarettes per day: 10.0 Years smoked: 30 Smoking pack-years: 15.00 Smoking status: Current every day smoker Tobacco type: cigarettes Second hand tobacco smoke exposure: No Alcohol intake: current Drinks per week: 3 Substance use: current Substance use type: marijuana Other substance usage details: SMOKES MARIJUANA DAILY Last use: 01/04/23 Lack of Transportation: No Lack of Food: Sometimes True Current Housing: I Have Housing Concerned About Future Housing: No Difficulty Paying Gas/Electric Bills: No Difficulty Paying for Meds: YES Currently Unemployed: No Education: High School Diploma/GED Difficulty w/ Childcare or Family Care: No Living arrangements: alone Occupation/Education: occupation Spiritual care concerns: No Anes - Eval Final PreProcedure Day of Procedure 01/08/23 13:13 Patient weight: normal Heart: regular rate and rhythm Lungs: clear to auscultation Airway: Mallampati scale class II Neurological: alert and oriented Last oral intake: >/= 8 hours Emergent: no Anesthetic plan: proceed Anesthesia type and monitoring: general ETT and standard monitoring Results Review: All pre-operative results and documents have been reviewed as part of the pre-operative evaluation. Inf
[2023-01-08] MEDS: ceFAZolin 2 GM/D5W 50 ML 2 GM/50 ML BAG IVPB (13:43)
[2023-01-08] MEDS: LIDO 1%/EPINEPHRINE 1:100,000 20 ML VIAL 10 ML INFILTRATE (14:10)
--- NOTE | 2023-01-08 14:52 | SUR.OPER ---
LOWER TEETH POOR QUALITY/DECAY/BROKEN TEETH. UPPER TEETH WEAR.
--- NOTE | 2023-01-08 15:41 | P.OP_ITS ---
Procedure Note - Detailed Date of Procedure 01/08/23 Pre-op Diagnosis C4-5 stenosis Post-op Diagnosis Same Procedure Performed Left C4-5 hemilaminectomy and lateral mass instrumented fusion Surgeon Diaz Adrian MD Anesthesia General Description of Procedure The patient was taken the operating room in the supine position, was sedated, intubated and placed under general anesthesia in routine fashion. He was then turned to the prone position on gel rolls with the head in a Rivas horseshoe head of talent management. The area of operation on the back of the neck was examined, marked for incision, prepped and draped in routine sterile fashion. Incision was marked over the C4 in 5 spinous processes in the midline. This area was injected with 0.5% by lidocaine with [id number] epinephrine. Intravenous antibiotics given prior to incision. Incision was made with a 10 blade scalpel. A subperiosteal dissection of the muscle soft tissue away from spinous process and lamina at C4 and C5 on the left was performed with a subperiosteal elevator and Bovie cautery. A verifying x- rays obtained to verify the level of operation. On the left at C4-5 a hemilaminectomy was performed using a Midas Boogie drill. Kerrison punches and curved curettes were used to define a plane with the dura and remove additional bone and ligament in the lateral recess. The spinous process was undercut with a Midas Boogie drill and Kerrison punches after a plane was dissected with curved curettes. This was done until adequate decompression was achieved. Lateral mass screws were placed at C4 and C5 on the left. This was done by creating a hole in the cortex with a Midas Boogie drill just medial a and inferior to the mid part of the facet. Power drill set to 12 mm was used to create a 12 mm hole 20? cephalad 20? lateral in each facet. After a tap was used a screw was placed into each facet. The facet and lateral mass were decorticated and the bone dust packed into the facet. A alison was fashioned and fit into the screw heads and secured using this appropriate caps. These were definitively tightened with a torque and anti torque device. A verifying x-rays obtained to verify good position of the instrumentation which was confirmed. The wound was then copiously irrigated with bacitracin irrigation all bleeding stopped with bipolar and Bovie cautery and Gelfoam thrombin powder. The wound was then closed in layered fashion with 2-0 Vicryl interrupted sutures in the lumbodorsal fascia and Juan's layer. 3-0 Vicryl buried interrupted sutures were placed in the dermis and skin was closed with a running 4-0 Monocryl subcuticular stitch and dressed with Dermabond. The patient was allowed to wake up in the operating room was taken to the recovery room in stable condition. There were no immediate complications of this operation. All counts were reported correct in the case. Blood loss was 50 cc. The patient was neurologically at his baseline postoperatively. Implants Lateral mass screws Estimated Blood Loss 50 IV Fluids 1,000 Complications None Condition Stable Disposition PACU [facility] Billing Surgery - Charge Forward: Surgery Billing
[2023-01-08] MEDS: ONDANSETRON INJ 4 MG/2 ML VIAL IV PUSH (16:00)
[2023-01-08] MEDS: fentaNYL CITRATE INJ (*CRX) 100 MCG/2 ML VIAL 25 MCG IV PUSH ×4 (16:09→17:04)
--- NOTE | 2023-01-08 16:26 | SUR.PHASEI ---
1610: Dr. Adrian at bedside to assess patient. new orders received.
--- NOTE | 2023-01-08 16:48 | SUR.PHASEI ---
1648: Dr. Adrian at bedside to assess patient. no new orders.
--- NOTE | 2023-01-08 18:20 | ADMGEN ---
This patient, Angelito Carter, was admitted to [facility] Surg Room 331-01. Patient/family oriented to hospital policies and general routines including ID bracelet, bed and alarms, visiting hours, pain management, procedures, bathroom and other care routines, personal items, smoking policy, room service/diet, and visiting hours. Information on how to activate the Rapid Response Team has been discussed. Patient/Family are encouraged to report perceived risks to care and to ask questions if they do not understand what they are told or what they should do.
[2023-01-08] MEDS: TICAGRELOR 90 MG TABLET PO (18:34)
[2023-01-08] MEDS: CYCLOBENZAPRINE HCL 10 MG TABLET PO (18:43)
[2023-01-08] MEDS: MORPHINE SULFATE (*CRX) 2 MG/ML INJ IV PUSH (18:43)
[2023-01-08] MEDS: KCL 20 MEQ/D5/0.45% SOD CHL 1,000 ML 100 ML IV CONT (18:44)
[2023-01-08] MEDS: HYDROcodone/acetaminophen (*CRX) 10-325 MG TABLET 1 TAB PO (20:48)
[2023-01-08] MEDS: DOCUSATE SODIUM 100 MG CAPSULE PO (20:49)
--- NOTE | 2023-01-08 22:25 | PC.NURSE ---
Pt called the nurse's station to report bleeding from his incisional site. Pt assessed by this RN. Pillow case saturated with blood due to incision leaking. Island dressing placed on back of neck to contain and measure blood. Dr Pat called by this RN to make him aware of the situation. Dr Pat wanted patients neuro check done and for patient to be ambulated. Neuro check completed by this RN and was WNL other the patient complaining of numbness and tingling in R arm and hand. Pt was able to ambulate to the door and back to bed. I called Dr pat back to inform him of the patients neuro check and ambulation- No new orders at this time. Neuro checks to be completed per ordered. Pt to be ambulated per orders.
[2023-01-09 00:22] VITALS: BP 181/95; PULSE 67; RESP 20; TEMP 36.2; O2SAT 96
[2023-01-09] MEDS: MORPHINE SULFATE (*CRX) 2 MG/ML INJ IV PUSH (01:42)
[2023-01-09 04:22] VITALS: BP 154/90; PULSE 59; RESP 18; TEMP 36.1; O2SAT 94
[2023-01-09 08:22] VITALS: BP 147/89; PULSE 71; RESP 16; TEMP 37.3; O2SAT 96
[2023-01-09] MEDS: DOCUSATE SODIUM 100 MG CAPSULE PO (08:36)
[2023-01-09] MEDS: allopurinoL 100 MG TABLET PO (08:38)
[2023-01-09] MEDS: TICAGRELOR 90 MG TABLET PO (08:39)
[2023-01-09] MEDS: amLODIPine BESYLATE 5 MG TABLET 10 MG PO (08:41)
[2023-01-09] MEDS: HYDROcodone/acetaminophen (*CRX) 10-325 MG TABLET 1 TAB PO (09:44)
[2023-01-09] MEDS: ATORVASTATIN 40 MG TABLET PO (09:50)
[2023-01-09 12:02] VITALS: BP 150/86; PULSE 82; RESP 18; TEMP 37.5; O2SAT 97
--- NOTE | 2023-01-09 12:26 | PC.NURSE ---
On 01/09/23, the student, [Warner Chaudhry ], provided care and completed [facility] documentation on this patient. I have reviewed the student's documentation and agree with the findings.
--- NOTE | 2023-01-09 12:27 | PC.NURSE ---
On 01/09/23, the student, [Ed Madden ], provided care and completed [facility] documentation on this patient. I have reviewed the student's documentation and agree with the findings.
--- NOTE | 2023-01-09 13:03 | WPDANESPN ---
Anes - Prog Note Post-Op Date/Time: 01/09/23 13:03 Cardiovascular status: normal Respiratory status: normal Airway patency: baseline Mental status: baseline Post-Op hydration status: normal Vital Signs: Last Vital Signs Temp 37.5 C 01/09/23 12:02 Pulse 82 01/09/23 12:02 Resp 18 01/09/23 12:02 BP 150/86 H 01/09/23 12:02 Pulse Ox 97 01/09/23 12:02 O2 Del Method Room Air 01/09/23 09:59 O2 Flow Rate 2 01/08/23 17:18 Pain Score (VAS): 1 I/O: Intake & Output 01/08/23 01/09/23 01/09/23 23:59 07:59 15:59 Intake Total 0 1328 Balance 0 1328 Post-procedural complaints: none Patient Feedback: Patient satisfied with anesthetic care.
--- NOTE | 2023-01-09 13:08 | WPDNEUROSGPN ---
Progress Note: A&P Assessment and Plan (1) Status post cervical spinal fusion: Code(s): Z98.1 - Arthrodesis status Status: Inactive Plan s/p PCDF C4-5 Plan: -Discharge home today -Restrictions reviewed at bedside. I instructed him to notify the office if he has any further concerns about the incision Subjective Date/time seen: 01/09/23 13:08 Interval history: Doing well with improved sensation in arms and functioning of right hand. Had incisional drainage this morning which was treated with skin glue and a bandage. Ambulating and tolerating PO. Would like to go home today. Review of Systems Review of Systems: All systems reviewed & are unremarkable except as noted in HPI and below Exam Narrative: AOx4 Near full strength in upper extremities Sensation intact to light touch Dressing c/d/i. No active drainage from incision Objective Data Vital Signs Vital Signs: Vital Signs - 24 hr 01/08/23 15:39 01/08/23 15:45 01/08/23 16:00 Temperature 97.2 F L Pulse Rate 59 L 58 L 79 Respiratory Rate 10 L 15 19 Blood Pressure 139/78 135/74 156/92 H Pulse Oximetry 100 100 100 Oxygen Delivery Simple Face Mask Simple Face Mask Simple Face Mask Oxygen Flow Rate 6 6 6 01/08/23 16:00 01/08/23 16:15 01/08/23 17:13 Temperature Pulse Rate 79 70 61 Respiratory Rate 14 14 13 Blood Pressure 155/101 H 154/94 H 165/99 H Pulse Oximetry 100 97 98 Oxygen Delivery Simple Face Mask Room Air Nasal Cannula Oxygen Flow Rate 6 2 01/08/23 17:18 01/08/23 16:30 01/08/23 17:30 Temperature 97 F L Pulse Rate 62 62 61 Respiratory Rate 14 12 14 Blood Pressure 160/98 H 168/93 H 173/96 H Pulse Oximetry 100 95 Oxygen Delivery Nasal Cannula Room Air Oxygen Flow Rate 2 01/08/23 17:45 01/08/23 18:15 01/08/23 19:15 Temperature 97 F L 97.2 F L 97.3 F L Pulse Rate 59 L 65 69 Respiratory Rate 12 14 18 Blood Pressure 169/91 H 164/95 H 157/94 H Pulse Oximetry 93 94 94 Oxygen Delivery Oxygen Flow Rate 01/08/23 20:00 01/08/23 20:38 01/09/23 00:22 Temperature 96.9 F L 97.1 F L Pulse Rate 69 72 67 Respiratory Rate 18 20 20 Blood Pressure 186/94 H 181/95 H Pulse Oximetry 94 95 96 Oxygen Delivery Room Air Oxygen Flow Rate 01/09/23 04:22 01/09/23 08:22 01/09/23 09:59 Temperature 97 F L 99.2 F Pulse Rate 59 L 71 Respiratory Rate 18 16 Blood Pressure 154/90 H 147/89 H Pulse Oximetry 94 96 Oxygen Delivery Room Air Oxygen Flow Rate 01/09/23 12:02 01/09/23 09:44 Temperature 99.5 F Pulse Rate 82 Respiratory Rate 18 Blood Pressure 150/86 H Pulse Oximetry 97 Oxygen Delivery Room Air Oxygen Flow Rate Intake/Output Intake/Output: Intake & Output 01/06/23 01/07/23 01/08/23 01/09/23 23:59 23:59 23:59 23:59 Intake Total 1050 1328 Balance 1050 1328 Meds/Results Medications: Active Medications Generic Name Dose Route Start Last Admin Trade Name Freq PRN Reason Stop Dose Admin Hydrocodone Bitart/Acetaminophen 1 tab 01/08/23 17:22 Hydrocodone/Acetaminophen (*Crx) 5-325 Mg Tablet PO Q4H PRN Mild Pain (1-3) Hydrocodone Bitart/Acetaminophen 1 tab 01/08/23 17:22 01/09/23 09:44 Hydrocodone/Acetaminophen (*Crx) 10-325 Mg Tablet PO 1 tab Q4H PRN Administration Moderate Pain (4-6) Al Hydrox/Mg Hydrox/Simethicone 20 ml 01/08/23 17:22 Mag Hydrox/Al Hydrox/Simeth 30 Ml Udc PO Q4H PRN Indigestion/Heartburn Allopurinol 100 mg 01/09/23 09:00 01/09/23 08:38 Allopurinol 100 Mg Tablet PO 100 mg DAILY ARIADNA Administration Amlodipine Besylate 10 mg 01/09/23 09:00 01/09/23 08:41 Amlodipine Besylate 5 Mg Tablet PO 10 mg DAILY ARIADNA Administration Atorvastatin Calcium 40 mg 01/09/23 09:00 01/09/23 09:50 Atorvastatin 40 Mg Tablet PO 40 mg DAILY ARIADNA Administration Bisacodyl 10 mg 01/08/23 17:22 Bisacodyl 10 Mg Suppository RECTAL DAILY PRN Constipation Cyclobenzaprine HCl
== END 2023-01-09 13:50 | disposition home or self-care (01) ==
LOC: ANHSURGERY 09:47 → ANH3MEDSUR 17:32
PROVIDERS: PCP Internal Medicine; Visit Provider Neurological Surgery
PROC: (CPT 63005; principal; 2023-01-08 12:00)
DX: M48.02 Spinal stenosis, cervical region (principal); G99.2 Myelopathy in diseases classified elsewhere; I10 Essential (primary) hypertension; I25.2 Old myocardial infarction; M10.9 Gout, unspecified; Z95.5 Presence of coronary angioplasty implant and graft; Z79.01 Long term (current) use of anticoagulants; Z79.82 Long term (current) use of aspirin; F17.210 Nicotine dependence, cigarettes, uncomplicated; F12.90 Cannabis use, unspecified, uncomplicated
CPT/HCPCS: 20936; 22840; 22600; 36415; 80048; 81001; 81003; 85027; 85610; 85730; 86850; 86900; 86901; 97161; 97165; 99199; A9270; C1713; J0330; J0690; J1100; J1170; J2250; J2270; J2405; J2704; J3010; J3480; J7120